=== PATIENT | female | born 1975 | race Caucasian/White ===

== ENCOUNTER 2019-03-09 15:28 | Emergency (ER) | payer MEDICAID ==
[2019-03-09] MEDS: KETOROLAC 30 MG INJ IM (16:51)
[2019-03-09] MEDS: ACETAMINOPHEN 500 MG TAB PO (16:51)
[2019-03-09 16:56] LABS: URINE BLOOD (Dip) POC Negative (NEGATIVE); URINE GLUCOSE (Dip) POC Negative (NEGATIVE); URINE KETONES (Dip) POC 1+ (NEGATIVE); URINE LEUKOCYTE EST (Dip) POC Negative (NEGATIVE); URINE NITRITE (Dip) POC Negative (NEGATIVE); URINE TOTAL PROTEIN POC Negative (NEGATIVE)
[2019-03-16 18:55] LABS: URINE BLOOD (Dip) POC Negative (NEGATIVE); URINE GLUCOSE (Dip) POC Negative (NEGATIVE); URINE KETONES (Dip) POC 1+ (NEGATIVE); URINE LEUKOCYTE EST (Dip) POC Negative (NEGATIVE); URINE NITRITE (Dip) POC Negative (NEGATIVE); URINE TOTAL PROTEIN POC Negative (NEGATIVE)
== END 2019-03-09 17:50 | disposition home or self-care (01) ==
LOC: FTE 15:28
DX: M54.42 Lumbago with sciatica, left side (principal)
CPT/HCPCS: 81003; 81025; 96372; 99284-25